=== PATIENT | male | born 1960 | race Caucasian/White ===

== ENCOUNTER 2016-12-05 19:02 | Emergency (ER) | payer BC ==
[2016-12-05 19:37] VITALS: BP 150/97
[2016-12-05] MEDS ORDERED: TDAP Vaccine 0.5 mL Syr IM ONE (20:17)
--- NOTE | 2016-12-05 20:22 | ED PDOC ---
Arrival/HPI - General Chief Complaint: Abnormal Skin Integrity Time Seen by Provider: 12/05/16 20:17 Historian: Patient - History of Present Illness Narrative History of Present Illness (Text): 12/05/16 20:00 This 56 yo male presents to this ED c/o left plantar puncture wound x 3 hours. Patient stated he stepped on a nail at home. He also noted he accidentally scrape his left face. He stated his facial abrasion is fine, but he came to ED for tetanus shot. Denies other complains. Time/Duration: 1-3 hours Context: Home Past Medical History - Provider Review Nursing Documentation Reviewed: Yes - Infectious Disease Hx of Infectious Diseases: None - Psychiatric Hx Substance Use: No - Anesthesia Hx Anesthesia: No Family/Social History - Physician Review Nursing Documentation Reviewed: Yes Family/Social History: Other (non-contributory) Smoking Status: Unknown If Ever Smoked Hx Alcohol Use: No Hx Substance Use: No Allergies/Home Meds Allergies/Adverse Reactions: Allergies No Known Allergies Allergy (Verified 03/06/14 11:13) Review of Systems - Review of Systems Constitutional: Normal. absent: Fatigue, Weight Change, Fevers Eyes: Normal ENT: Normal Respiratory: Normal Cardiovascular: Normal Gastrointestinal: Normal Genitourinary Male: Normal Musculoskeletal: Normal Skin: Other (plantar puncture wound. left facial punctur wound) Neurological: Normal Endocrine: Normal Hemo/Lymphatic: Normal Psychiatric: Normal Physical Exam Vital Signs Temp Pulse Resp BP Pulse Ox 12/05/16 19:22 98.7 F 80 16 150/97 H 97 Temperature: Afebrile Blood Pressure: Normal Pulse: Regular Respiratory Rate: Normal Appearance: Positive for: Well-Appearing, Non-Toxic, Comfortable Pain Distress: None Mental Status: Positive for: Alert and Oriented X 3 - Systems Exam Head: Present: Normocephalic, Other ((+) left facial 3 mm puncture wound. No actively bleeding. No FB visualized.) Pupils: Present: PERRL Extroacular Muscles: Present: EOMI Conjunctiva: Present: Normal Mouth: Present: Moist Mucous Membranes Upper Extremity: Present: Normal Inspection, Normal ROM, NORMAL PULSES, Neurovascularly Intact Lower Extremity: Present: NORMAL PULSES, Normal ROM, Neurovascularly Intact, Capillary Refill < 2 s, Other ((+) puncture wound on plantar aspect. no bleeding or FB visualized). No: Edema, CALF TENDERNESS Neurological: Present: GCS=15, CN II-XII Intact, Speech Normal, Motor Func Grossly Intact, Normal Sensory Function, Normal Cerebellar Funct, Gait Normal Skin: Present: Warm, Dry, Normal Color. No: Rashes Psychiatric: Present: Alert, Oriented x 3, Normal Insight Medical Decision Making ED Course and Treatment: 12/05/16 20:53 Puncture wounds were irrigated, Bacitracin ointment , and dressing applied. Patient was recommended to f/u pmd in 2 days for wound check. Patient is aware of SE when taking Cipro including tendonitis and Tendon rupture. To return to emergency if symptoms worsen. Re-evaluation Time: 20:54 Reassessment Condition: Re-examined, Improved - Medication Orders Current Medication Orders: Discontinued Medications Ciprofloxacin (Cipro) 500 mg PO ONCE STA PRN Reason: Protocol Stop: 12/05/16 20:19 Tetanus/Reduced Diphtheria/Acell Pertussis (Boostrix Vaccine Inj) 0.5 ml IM .ONCE ONE Stop: 12/05/16 20:18 Disposition/Present on Arrival - Present on Arrival Any Indicators Present on Arrival: No History of DVT/PE: No History of Uncontrolled Diabetes: No Urinary Catheter: No History of Decub. Ulcer: No History Surgical Site Infection Following: None - Disposition Have Diagnosis and Disposition been Completed?: Yes Diagnosis: Puncture wound of plantar aspect of foot Disposition: HOME/ ROUTINE Disposition Time: 20:54 Patient Plan: Discharge Patient Problems: Current Active Problems Problem Status Onset Puncture wound of plantar aspect of foot Acute Condition: GOOD Discharge Instructions (ExitCare): Puncture Wound (ED) Additional Instructions: Call private doctor for follow up visit in 1-2 days. Clean wound with soap and water daily. Return to emergency if wound becomes infected, redness, or discharge. Avoid strenuous activities when using Ciprofloxacin for at least 4 weeks or longer Prescriptions: Ciprofloxacin [Cipro] 500 mg PO BID #14 tab Referrals: Flaca Lou MD [Primary Care Provider] - Follow up with primary Forms: [employer] (Uzbek)
[2016-12-05 21:11] VITALS: PULSE 88; TEMP 98.5
[2016-12-05 21:12] VITALS: RESP 18; O2SAT 99
== END 2016-12-05 21:12 | disposition home or self-care (01) ==
LOC: ED 19:02
DX: S91.332A Puncture wound without foreign body, left foot, initial encounter (principal); W22.8XXA Striking against or struck by other objects, initial encounter; Y92.009 Unspecified place in unspecified non-institutional (private) residence as the place of occurrence of the external cause; Z23 Encounter for immunization